=== PATIENT | male | born 1970 | race Caucasian/White ===

== ENCOUNTER → 2020-11-08 | Outpatient (CLI) | payer BC ==
[~2020-11-08] MED LIST: ALEVE 220MG220 MG PO; ALLEGRA 180MG180 MG PO; FORADIL AERO0.012 MG IH; PROVENTIL0.09 MG/A1 IH; SINGULAIR 110 MG/TAB PO
== END ==
LOC: COL.LAB 12:54
DX: Z01.89 Encounter for other specified special examinations (principal)

== ENCOUNTER 2022-10-06 10:30 | Emergency (ER) | payer BC ==
[~2022-10-06] VITALS: Ht 177.8 cm; Wt 95.5 kg
[2022-10-06 10:33] VITALS: TEMP 97.8
[2022-10-06] MEDS ORDERED: NORCO 325 MG-51 TAB PO (12:45)
[2022-10-06] MEDS ORDERED: CEPHALEXIN500 M1 PO (12:45)
[2022-10-06 13:58] VITALS: BP 166/102; PULSE 69
== END 2022-10-06 13:58 | disposition home or self-care (01) ==
LOC: COL.ER 10:30
DX: S61.213A Laceration without foreign body of left middle finger without damage to nail, initial encounter (principal); S61.215A Laceration without foreign body of left ring finger without damage to nail, initial encounter; Z23 Encounter for immunization; W27.0XXA Contact with workbench tool, initial encounter